=== PATIENT | female | born 1935 | race Caucasian/White ===

== ENCOUNTER 2023-10-03 13:41 | Inpatient (IN) | payer MEDICARE, BC ==
[~2023-10-03] VITALS: Ht 157.5 cm; Wt 68.4 kg
[2023-10-03 17:30] VITALS: BP 166/70; TEMP 97.7; O2SAT 94
[2023-10-03] MEDS ORDERED: DEXTROSE 50% 50ML SYRINGE IV PRN (17:45)
[2023-10-03] MEDS ORDERED: GLUCOSE 4GM CHEW TABLET PO PRN (17:45)
[2023-10-03] MEDS ORDERED: HYDR12CA PO (18:18)
[2023-10-03] MEDS ORDERED: GABA-1171 PO (18:18)
[2023-10-03] MEDS ORDERED: SUPECAP7 PO (18:18)
[2023-10-03] MEDS ORDERED: CALC600C3 PO (18:18)
[2023-10-03] MEDS ORDERED: SYST1SOL OU (18:18)
[2023-10-03] MEDS ORDERED: MIRA3350 PO (18:18)
[2023-10-03] MEDS ORDERED: LISI5TAB11 PO (18:18)
[2023-10-03] MEDS ORDERED: XALA0.007 OU (18:18)
[2023-10-03] MEDS ORDERED: TUMS500C PO (18:18)
[2023-10-03] MEDS ORDERED: LEXA1TAB PO (18:18)
[2023-10-03] MEDS ORDERED: CO-E200C PO (18:18)
[2023-10-03] MEDS ORDERED: TRAM1CAP15 PO (18:18)
[2023-10-03] MEDS ORDERED: ACET-683 PO (18:18)
[2023-10-03] MEDS ORDERED: LOPE1CAP5 PO (18:18)
[2023-10-03] MEDS ORDERED: FERR325T18 PO (18:18)
[2023-10-03] MEDS ORDERED: MV-M1CAP8 PO (18:18)
[2023-10-03] MEDS ORDERED: D 101000 PO (18:18)
[2023-10-03] MEDS ORDERED: OMEP-173 PO (18:18)
[2023-10-03] MEDS ORDERED: HOME MED LIST COMPLETE! XX SCH (18:25)
[2023-10-03 19:07] LABS: BASO % 0.1 % (0.0-1.0); HEMATOCRIT 33.6 % (36.0-47.0); HEMOGLOBIN 11.5 g/dl (12.0-15.5); LYMPH # 0.6 10^3/uL (1.5-5.0); LYMPH % 4.9 % (24.0-44.0); MEAN CORPUSCULAR HEMOGLOBIN 34.3 pg (27.0-33.0); MEAN CORPUSCULAR HGB CONC 34.2 g/dl (32.0-36.5); MEAN CORPUSCULAR VOLUME 100.3 fl (80.0-96.0); MONO # 0.6 10^3/uL (0.0-0.8); MONO % 5.1 % (2.0-8.0); NEUTROPHILS % 89.5 % (36.0-66.0); PLATELET COUNT, AUTOMATED 176 10^3/uL (150-450); RED BLOOD COUNT 3.35 10^6/uL (4.00-5.40); WHITE BLOOD COUNT 12.3 10^3/uL (4.0-10.0)
[2023-10-03] MEDS ORDERED: CALCIUM CARBONATE 500 MG CHEW U/D PO PRN (19:15)
[2023-10-03] MEDS ORDERED: MORPHINE 2 MG/ML 1ML VIAL IV PRN (19:15)
[2023-10-03] MEDS ORDERED: NALOXONE INJ 0.4MG/1ML VIAL IV PRN (19:15)
[2023-10-03] MEDS ORDERED: MIRALAX *UNIT DOSE* 17GM PACKET PO PRN (19:15)
[2023-10-03 19:19] LABS: INR 1.03; PROTHROMBIN TIME 13.2 SECONDS (12.5-14.5)
[2023-10-03 19:20] LABS: PARTIAL THROMBOPLASTIN TIME 29.6 SECONDS (24.8-34.2)
[2023-10-03 19:31] LABS: CK-MB VALUE MASS 2.2 NG/ML (<3.6)
[2023-10-03 19:32] LABS: CPK CREATINE PHOSPHOKINASE 181 U/L (34-145); MB/CK RELATIVE INDEX 1.21 (< OR =4)
[2023-10-03 19:33] LABS: ALBUMIN 3.1 G/DL (3.2-5.2); ALKALINE PHOSPHATASE 59 U/L (46-116); ALT/SGPT 14 U/L (7.0-40); AST/SGOT 21 U/L (<34); BILIRUBIN,TOTAL 0.8 MG/DL (0.3-1.2); BLOOD UREA NITROGEN 12 MG/DL (9-23); CALCIUM LEVEL 8.1 MG/DL (8.3-10.6); CARBON DIOXIDE LEVEL 27 MMOL/L (20-31); CHLORIDE LEVEL 105 MMOL/L (98-107); CREATININE FOR GFR 0.67 MG/DL (0.55-1.30); GLOMERULAR FILTRATION RATE > 60.0 (>32); GLUCOSE, FASTING 121 MG/DL (74-106); POTASSIUM SERUM 3.7 MMOL/L (3.5-5.1); SODIUM LEVEL 137 MMOL/L (136-145)
[2023-10-03] MEDS ORDERED: traMADol 50 MG TAB PO ONE (20:00)
[2023-10-03] MEDS: ACETAMINOPHEN 500 MG TAB PO SCH (20:02)
[2023-10-03 20:08] LABS: TOTAL 25(OH) VITAMIN D 35.8 NG/ML (20.0-100.0)
[2023-10-03] MEDS: LATANOPROST 0.005% OPHTH SOLN 2.5 ML OU SCH (21:58)
[2023-10-03 22:00] VITALS: BP 146/61; TEMP 97; O2SAT 96
[2023-10-04] MEDS: ACETAMINOPHEN 500 MG TAB PO SCH ×2 (00:19→05:41)
[2023-10-04] MEDS: D5W/0.45% SODIUM CHLORIDE 1,000 ML IV SCH ×2 (05:26→21:40)
[2023-10-04 06:00] VITALS: BP 129/78; TEMP 97.9; O2SAT 94
[2023-10-04 06:03] LABS: HEMATOCRIT 31.5 % (36.0-47.0); HEMOGLOBIN 10.7 g/dl (12.0-15.5); MEAN CORPUSCULAR HEMOGLOBIN 34.4 pg (27.0-33.0); MEAN CORPUSCULAR VOLUME 101.3 fl (80.0-96.0); PLATELET COUNT, AUTOMATED 145 10^3/uL (150-450); RED BLOOD COUNT 3.11 10^6/uL (4.00-5.40); WHITE BLOOD COUNT 7.9 10^3/uL (4.0-10.0)
[2023-10-04 06:31] LABS: BLOOD UREA NITROGEN 11 MG/DL (9-23); CALCIUM LEVEL 8.3 MG/DL (8.3-10.6); CARBON DIOXIDE LEVEL 28 MMOL/L (20-31); CHLORIDE LEVEL 105 MMOL/L (98-107); CREATININE FOR GFR 0.61 MG/DL (0.55-1.30); GLOMERULAR FILTRATION RATE > 60.0 (>32); GLUCOSE, FASTING 111 MG/DL (74-106); POTASSIUM SERUM 3.4 MMOL/L (3.5-5.1); SODIUM LEVEL 139 MMOL/L (136-145)
[2023-10-04] MEDS ORDERED: MORPHINE 2 MG/ML 1ML VIAL IV ONE (07:20)
[2023-10-04] MEDS: ESCITALOPRAM OXALATE 10 MG TAB (LEXAPRO) PO SCH (08:40)
[2023-10-04] MEDS: FERROUS SULFATE 325MG TAB PO SCH (08:41)
[2023-10-04] MEDS: OMEPRAZOLE 20MG CAP PO SCH (08:41)
[2023-10-04] MEDS ORDERED: ACETAMINOPHEN TAB 650MG DOSE (2X325MG) PO PRN (10:00)
[2023-10-04] MEDS: traMADol 50 MG TAB PO PRN (11:26)
[2023-10-04] MEDS ORDERED: ROCURONIUM BROMIDE 50MG/5ML VIAL As Ordered ONE (13:57)
[2023-10-04] MEDS ORDERED: propofoL 200 MG/20 ML VIAL As Ordered ONE (13:57)
[2023-10-04] MEDS ORDERED: LIDOCAINE 2% 100MG/5ML SDV (FOR ANES.) As Ordered ONE (13:57)
[2023-10-04] MEDS ORDERED: SUGAMMADEX SODIUM 500 MG/5 ML VIAL (BRIDION) As Ordered ONE (13:57)
[2023-10-04] MEDS ORDERED: fentaNYL 100 MCG/2 ML INJECTION As Ordered ONE ×2 (14:00→15:04)
[2023-10-04] MEDS ORDERED: ONDANSETRON 4MG 2ML VIAL As Ordered ONE (14:00)
[2023-10-04] MEDS ORDERED: ceFAZolin 2 GM/D5W 50 ML IV BAG As Ordered ONE (14:58)
[2023-10-04 17:35] VITALS: BP 118/58; TEMP 97.7; O2SAT 98
[2023-10-04 18:05] VITALS: BP 120/60; TEMP 97.9; O2SAT 97
[2023-10-04 20:14] VITALS: BP 133/56; TEMP 96.8; O2SAT 94
[2023-10-04 20:51] VITALS: BP 133/57; TEMP 97.5; O2SAT 90
[2023-10-04] MEDS: LATANOPROST 0.005% OPHTH SOLN 2.5 ML OU SCH (20:56)
[2023-10-04] MEDS: ceFAZolin SOD 2 GM in IV 1 EA IV SCH (23:11)
[2023-10-05 06:00] VITALS: BP 123/59; TEMP 97.7; O2SAT 98
[2023-10-05] MEDS: ceFAZolin SOD 2 GM in IV 1 EA IV SCH (06:18)
[2023-10-05] MEDS: OMEPRAZOLE 20MG CAP PO SCH (09:28)
[2023-10-05] MEDS: ESCITALOPRAM OXALATE 10 MG TAB (LEXAPRO) PO SCH (09:28)
[2023-10-05] MEDS: FERROUS SULFATE 325MG TAB PO SCH (09:28)
[2023-10-05 10:08] VITALS: BP 130/80; TEMP 97.7
[2023-10-05 11:31] VITALS: O2SAT 90
[2023-10-05] MEDS: traMADol 50 MG TAB PO PRN (11:31)
[2023-10-05] MEDS ORDERED: TRAM50TA2 PO (11:57)
[2023-10-05] MEDS ORDERED: CEFA1SOL IV (11:57)
[2023-10-05] MEDS ORDERED: LOVE1INJ SC (11:58)
== END 2023-10-05 14:40 | DRG 482 ==
LOC: M MS5PR 17:10
PROVIDERS: ADMIT Internal Medicine Nephrology; ATTEND General Practice
PROC: 0QS736Z Reposition Left Upper Femur with Intramedullary Internal Fixation Device, Percutaneous Approach (ICD-10-PCS; principal; 2023-10-04 17:00)
DX: S72.141A Displaced intertrochanteric fracture of right femur, initial encounter for closed fracture (principal); I10 Essential (primary) hypertension; W18.30XA Fall on same level, unspecified, initial encounter; Y92.192 Bathroom in other specified residential institution as the place of occurrence of the external cause; Y93.E8 Activity, other personal hygiene; Y99.8 Other external cause status; E78.00 Pure hypercholesterolemia, unspecified; F41.9 Anxiety disorder, unspecified; F32.A Depression, unspecified; K21.9 Gastro-esophageal reflux disease without esophagitis; M47.9 Spondylosis, unspecified; Z66 Do not resuscitate; H40.9 Unspecified glaucoma; F03.90 Unspecified dementia, unspecified severity, without behavioral disturbance, psychotic disturbance, mood disturbance, and anxiety; R29.6 Repeated falls; E55.9 Vitamin D deficiency, unspecified; I25.10 Atherosclerotic heart disease of native coronary artery without angina pectoris; I49.1 Atrial premature depolarization; Z79.899 Other long term (current) drug therapy; Z88.6 Allergy status to analgesic agent; Z88.2 Allergy status to sulfonamides; Z88.1 Allergy status to other antibiotic agents; Z88.8 Allergy status to other drugs, medicaments and biological substances; Z87.891 Personal history of nicotine dependence; Z87.81 Personal history of (healed) traumatic fracture

== ENCOUNTER 2023-10-05 11:33 | Inpatient (IN) | payer MEDICARE, BC ==
[~2023-10-05] VITALS: Ht 157.5 cm; Wt 57.3 kg
[~2023-10-05 11:33] MED LIST: ACET-683 PO; CALC600C3 PO; CO-E200C PO; D 101000 PO; FERR325T18 PO; GABA-1171 PO; HYDR12CA PO; LEXA1TAB PO; LISI5TAB11 PO; LOPE1CAP5 PO; MIRA3350 PO; MV-M1CAP8 PO; OMEP-173 PO; SUPECAP7 PO; SYST1SOL OU; TRAM1CAP15 PO; TUMS500C PO; XALA0.007 OU
[2023-10-05] MEDS ORDERED: TRAM50TA2 PO (11:57)
[2023-10-05] MEDS ORDERED: CEFA1SOL IV (11:57)
[2023-10-05] MEDS ORDERED: LOVE1INJ SC (11:58)
[2023-10-05] MEDS ORDERED: MAALOX 30 ML SUSP *UDC PO PRN (12:10)
[2023-10-05] MEDS ORDERED: diphenhydrAMINE 25MG CAP PO PRN (12:10)
[2023-10-05] MEDS ORDERED: ACETAMINOPHEN 650MG SUPP PR PRN (12:10)
[2023-10-05] MEDS ORDERED: SIMETHICONE 80MG CHEW TAB PO PRN (12:10)
[2023-10-05] MEDS ORDERED: MIRALAX *UNIT DOSE* 17GM PACKET PO PRN (12:10)
[2023-10-05] MEDS ORDERED: MOM 30ML SUSPENSION UDC PO PRN (12:10)
[2023-10-05 14:15] VITALS: BP 112/53; TEMP 97.9; O2SAT 94
[2023-10-05] MEDS: traMADol 50 MG TAB PO PRN (16:32)
[2023-10-05] MEDS: DOCUSATE SODIUM 100MG CAPSULE PO SCH (20:16)
[2023-10-05] MEDS: GABAPENTIN 100 MG CAP PO SCH (20:16)
[2023-10-05] MEDS: LATANOPROST 0.005% OPHTH SOLN 2.5 ML OU SCH (21:00)
[2023-10-06 06:00] VITALS: BP 143/61; TEMP 98.2; O2SAT 91
[2023-10-06 06:56] LABS: BASO % 0.2 % (0.0-1.0); EOS % 0.3 % (0.0-3.0); HEMOGLOBIN 8.3 g/dl (12.0-15.5); LYMPH # 0.6 10^3/uL (1.5-5.0); LYMPH % 7.1 % (24.0-44.0); MEAN CORPUSCULAR HEMOGLOBIN 34.6 pg (27.0-33.0); MEAN CORPUSCULAR HGB CONC 33.2 g/dl (32.0-36.5); MEAN CORPUSCULAR VOLUME 104.2 fl (80.0-96.0); MONO % 10.5 % (2.0-8.0); NEUTROPHILS # 7.3 10^3/uL (1.5-8.5); NEUTROPHILS % 81.3 % (36.0-66.0); PLATELET COUNT, AUTOMATED 137 10^3/uL (150-450)
[2023-10-06 07:18] LABS: BLOOD UREA NITROGEN 7 MG/DL (9-23); CALCIUM LEVEL 8.3 MG/DL (8.3-10.6); CARBON DIOXIDE LEVEL 27 MMOL/L (20-31); CHLORIDE LEVEL 105 MMOL/L (98-107); GLOMERULAR FILTRATION RATE > 60.0 (>32); GLUCOSE, FASTING 100 MG/DL (74-106); POTASSIUM SERUM 3.6 MMOL/L (3.5-5.1); SODIUM LEVEL 136 MMOL/L (136-145)
[2023-10-06] MEDS: FERROUS SULFATE 325MG TAB PO SCH (08:18)
[2023-10-06] MEDS: hydroCHLOROthiazide 12.5 MG CAPSULE PO SCH (08:19)
[2023-10-06] MEDS: OMEPRAZOLE 20MG CAP PO SCH (08:19)
[2023-10-06] MEDS: ESCITALOPRAM OXALATE 10 MG TAB (LEXAPRO) PO SCH (08:19)
[2023-10-06] MEDS: lisinopriL 5 MG TAB PO SCH (08:19)
[2023-10-06] MEDS: ENOXAPARIN 40MG/0.4ML SYRINGE (J1650 PER 10MG) SC SCH (08:19)
[2023-10-06] MEDS: ACETAMINOPHEN TAB 650MG DOSE (2X325MG) PO PRN (08:20)
[2023-10-06] MEDS ORDERED: OMEPRAZOLE 20MG CAP PO SCH (09:00)
[2023-10-06] MEDS: oxyCODONE 5MG TAB PO PRN (13:22)
[2023-10-06 14:00] VITALS: BP 117/56; TEMP 97.6; O2SAT 95
[2023-10-06 20:00] VITALS: BP 109/75; O2SAT 93
[2023-10-06 20:17] VITALS: TEMP 98.1
[2023-10-07 05:37] VITALS: BP 133/61; TEMP 98; O2SAT 92
[2023-10-07 14:00] VITALS: BP 117/53; TEMP 98.2; O2SAT 98
[2023-10-07 19:52] VITALS: BP 126/76; TEMP 98.6; O2SAT 97
[2023-10-08 05:23] VITALS: BP 150/69; TEMP 97.3; O2SAT 95
[2023-10-08 06:30] LABS: HEMATOCRIT 22.8 % (36.0-47.0); HEMOGLOBIN 7.6 g/dl (12.0-15.5); MEAN CORPUSCULAR HEMOGLOBIN 33.8 pg (27.0-33.0); MEAN CORPUSCULAR HGB CONC 33.3 g/dl (32.0-36.5); MEAN CORPUSCULAR VOLUME 101.3 fl (80.0-96.0); PLATELET COUNT, AUTOMATED 190 10^3/uL (150-450); RED BLOOD COUNT 2.25 10^6/uL (4.00-5.40)
[2023-10-08 14:00] VITALS: BP 105/70; TEMP 97.9; O2SAT 96
[2023-10-08 19:23] VITALS: BP 112/51; TEMP 97.6; O2SAT 96
[2023-10-09 05:20] VITALS: BP 152/64; TEMP 97.2; O2SAT 98
[2023-10-09 07:11] LABS: HEMATOCRIT 24.6 % (36.0-47.0); HEMOGLOBIN 8.1 g/dl (12.0-15.5); MEAN CORPUSCULAR HEMOGLOBIN 33.6 pg (27.0-33.0); MEAN CORPUSCULAR HGB CONC 32.9 g/dl (32.0-36.5); MEAN CORPUSCULAR VOLUME 102.1 fl (80.0-96.0); PLATELET COUNT, AUTOMATED 218 10^3/uL (150-450); RED BLOOD COUNT 2.41 10^6/uL (4.00-5.40); WHITE BLOOD COUNT 6.4 10^3/uL (4.0-10.0)
[2023-10-09 14:00] VITALS: BP 140/62; TEMP 98.2; O2SAT 98
[2023-10-09 20:00] VITALS: BP 127/59; TEMP 98.3; O2SAT 99
[2023-10-10 06:00] VITALS: BP 164/75; TEMP 98.2; O2SAT 95
[2023-10-10 14:00] VITALS: BP 126/56; TEMP 98.7; O2SAT 95
[2023-10-10 20:00] VITALS: BP 127/60; TEMP 99.2; O2SAT 96
[2023-10-11 06:16] VITALS: BP 140/70; TEMP 99.2; O2SAT 94
[2023-10-11 06:33] LABS: HEMATOCRIT 25.5 % (36.0-47.0); HEMOGLOBIN 8.2 g/dl (12.0-15.5); MEAN CORPUSCULAR HEMOGLOBIN 33.6 pg (27.0-33.0); MEAN CORPUSCULAR HGB CONC 32.2 g/dl (32.0-36.5); MEAN CORPUSCULAR VOLUME 104.5 fl (80.0-96.0); PLATELET COUNT, AUTOMATED 294 10^3/uL (150-450); RED BLOOD COUNT 2.44 10^6/uL (4.00-5.40); WHITE BLOOD COUNT 6.4 10^3/uL (4.0-10.0)
[2023-10-11 14:00] VITALS: BP 121/59; TEMP 97.2; O2SAT 93
[2023-10-11 20:00] VITALS: BP 110/53; TEMP 98; O2SAT 94
[2023-10-12 06:10] VITALS: BP 131/62; TEMP 97.7; O2SAT 96
[2023-10-12 14:00] VITALS: BP 147/63; TEMP 98.5; O2SAT 94
[2023-10-12] MEDS: ACETAMINOPHEN TAB 650MG DOSE (2X325MG) PO SCH (16:04)
[2023-10-12 19:54] VITALS: BP 132/62; TEMP 97.9; O2SAT 98
[2023-10-13 06:00] VITALS: BP 161/71; TEMP 98.1; O2SAT 96
[2023-10-13 06:47] LABS: HEMATOCRIT 27.3 % (36.0-47.0); MEAN CORPUSCULAR HEMOGLOBIN 34.5 pg (27.0-33.0); MEAN CORPUSCULAR VOLUME 104.6 fl (80.0-96.0); PLATELET COUNT, AUTOMATED 350 10^3/uL (150-450); RED BLOOD COUNT 2.61 10^6/uL (4.00-5.40); WHITE BLOOD COUNT 6.2 10^3/uL (4.0-10.0)
[2023-10-13 07:12] LABS: BLOOD UREA NITROGEN 10 MG/DL (9-23); CALCIUM LEVEL 8.2 MG/DL (8.3-10.6); CARBON DIOXIDE LEVEL 30 MMOL/L (20-31); CHLORIDE LEVEL 104 MMOL/L (98-107); CREATININE FOR GFR 0.64 MG/DL (0.55-1.30); GLOMERULAR FILTRATION RATE > 60.0 (>32); GLUCOSE, FASTING 102 MG/DL (74-106); POTASSIUM SERUM 3.8 MMOL/L (3.5-5.1); SODIUM LEVEL 138 MMOL/L (136-145)
[2023-10-13 14:00] VITALS: BP 113/57; TEMP 98.5; O2SAT 98
[2023-10-13 20:00] VITALS: BP 110/56; TEMP 97; O2SAT 95
[2023-10-14 06:00] VITALS: BP 145/63; TEMP 97.9; O2SAT 92
[2023-10-14 06:26] LABS: HEMATOCRIT 26.1 % (36.0-47.0); HEMOGLOBIN 8.2 g/dl (12.0-15.5); MEAN CORPUSCULAR HEMOGLOBIN 33.3 pg (27.0-33.0); MEAN CORPUSCULAR HGB CONC 31.4 g/dl (32.0-36.5); MEAN CORPUSCULAR VOLUME 106.1 fl (80.0-96.0); PLATELET COUNT, AUTOMATED 321 10^3/uL (150-450); RED BLOOD COUNT 2.46 10^6/uL (4.00-5.40); WHITE BLOOD COUNT 5.2 10^3/uL (4.0-10.0)
[2023-10-14 14:00] VITALS: BP 107/53; TEMP 97; O2SAT 99
[2023-10-14 20:00] VITALS: BP 109/55; TEMP 97.2; O2SAT 97
[2023-10-15 06:00] VITALS: BP 155/88; TEMP 98; O2SAT 95
[2023-10-15 14:05] VITALS: BP 134/60; TEMP 98; O2SAT 96
[2023-10-15 20:00] VITALS: BP 114/69; TEMP 97.5; O2SAT 96
[2023-10-16] MEDS: LIDOCAINE 5% (LIDODERM) PATCH TD PRN (04:32)
[2023-10-16 05:35] VITALS: BP 142/63; TEMP 97.3; O2SAT 98
[2023-10-16 14:00] VITALS: BP 128/60; TEMP 98.2; O2SAT 100
[2023-10-16 20:00] VITALS: BP 141/63; TEMP 97.6; O2SAT 98
[2023-10-17 05:20] VITALS: BP 123/58; TEMP 97.4; O2SAT 95
[2023-10-17 06:45] LABS: HEMATOCRIT 30.3 % (36.0-47.0); HEMOGLOBIN 10.1 g/dl (12.0-15.5); MEAN CORPUSCULAR HEMOGLOBIN 34.9 pg (27.0-33.0); MEAN CORPUSCULAR HGB CONC 33.3 g/dl (32.0-36.5); MEAN CORPUSCULAR VOLUME 104.8 fl (80.0-96.0); PLATELET COUNT, AUTOMATED 391 10^3/uL (150-450); RED BLOOD COUNT 2.89 10^6/uL (4.00-5.40); WHITE BLOOD COUNT 8.1 10^3/uL (4.0-10.0)
[2023-10-17 14:00] VITALS: BP 107/56; TEMP 98.5; O2SAT 96
[2023-10-17 19:19] VITALS: BP 150/66; TEMP 97; O2SAT 96
[2023-10-18 06:21] VITALS: BP 150/68; TEMP 97.1; O2SAT 94
[2023-10-18 14:00] VITALS: BP 106/53; TEMP 97.8; O2SAT 94
[2023-10-18 20:00] VITALS: BP 144/66; TEMP 98.1; O2SAT 99
[2023-10-19 06:00] VITALS: BP 148/68; TEMP 98.1; O2SAT 96
[2023-10-19] MEDS: CALCIUM CARBONATE 500 MG CHEW U/D PO PRN (08:58)
[2023-10-19 09:16] VITALS: BP 148/68
== END 2023-10-19 12:53 | DRG 561 ==
LOC: M PM&R 14:15 → UNDOADMIN 14:49 → M PM&R 14:49
PROVIDERS: ADMIT Physical Medicine & Rehabilitation; ATTEND Physical Medicine & Rehabilitation
DX: S72.141D Displaced intertrochanteric fracture of right femur, subsequent encounter for closed fracture with routine healing (principal); I10 Essential (primary) hypertension; E78.00 Pure hypercholesterolemia, unspecified; I25.10 Atherosclerotic heart disease of native coronary artery without angina pectoris; F41.9 Anxiety disorder, unspecified; F32.A Depression, unspecified; K21.9 Gastro-esophageal reflux disease without esophagitis; D63.8 Anemia in other chronic diseases classified elsewhere; G89.11 Acute pain due to trauma; M19.90 Unspecified osteoarthritis, unspecified site; H40.9 Unspecified glaucoma; E55.9 Vitamin D deficiency, unspecified; Z74.1 Need for assistance with personal care; I49.1 Atrial premature depolarization; Z66 Do not resuscitate; Z74.09 Other reduced mobility; Z87.81 Personal history of (healed) traumatic fracture; Z87.891 Personal history of nicotine dependence; Z79.899 Other long term (current) drug therapy; Z88.2 Allergy status to sulfonamides; Z88.1 Allergy status to other antibiotic agents; Z88.6 Allergy status to analgesic agent; Z88.8 Allergy status to other drugs, medicaments and biological substances

== ENCOUNTER → 2023-10-25 | Outpatient (CLI) | payer MEDICARE, BC ==
[~2023-10-25] MED LIST changes: +CEFA1SOL IV; +LOVE1INJ SC; +TRAM50TA2 PO
== END ==
LOC: M SOG 08:05
PROVIDERS: ATTEND Physician Assistant
DX: S72.141A Displaced intertrochanteric fracture of right femur, initial encounter for closed fracture (principal); W18.30XA Fall on same level, unspecified, initial encounter; Y92.009 Unspecified place in unspecified non-institutional (private) residence as the place of occurrence of the external cause